=== PATIENT | male | born 1990 | race Caucasian/White ===

== ENCOUNTER 2019-01-28 22:56 | Emergency (ER) | payer BC ==
[2019-01-28 23:13] VITALS: BP 164/102; PULSE 92; O2SAT 98
[2019-01-28] MEDS ORDERED: Nizoral CREAM TOP ONE (23:39)
--- NOTE | 2019-01-28 23:40 | ERPHSYRPT ---
- History of Present Illness Time Seen by Provider: 01/28/19 23:15 Source: patient Exam Limitations: no limitations Patient Subjective Stated Complaint: pt states, "I've had this jock itch off and on for a year but it has gotten alot worse laterly". Saw BMET a couple months ago for this and she made suggestions for OTC creams, etc and he tried those with no improvement only worsening. Triage Nursing Assessment: pt has reddened area to testicular area and groin, which forms a cachil dehe ring. pt states, "it gets dry and scaly at times and is VERY itchy". Lungs clear, heart tones reg, abd soft with active bs x4 quad, nontender. Pt states, "It's painful at times but always has discomfort". Physician History: Patient has had itchy rash to groin, genitalia and upper medial thighs for the past one year. He has been scene at a clinic at work, diagnosed with jock itch , and tried clotrimazole without resolution of the rash. He has tried Gold Cervantes also with some relief, but not complete resolution of the rash. He denies any rash anywhere else. Patient states he sweats in his groin and genital area at night quite a bit. Patient has not had any oral antifungals or any biopsies of the area in the past year. Timing/Duration: other (one year) Quality: itchy Severity: moderate Location: genitalia Possible Causes: other (presumed jock itch) Modifying Factors: Improves With: other (some relief with clotrimazole and Gold Cervantes OTC, but no resolution). Worsens With: scratching Associated Symptoms: rash, No blisters, No change in skin texture, No difficulty breathing, No edema, No fever, No flushing, No headache, No hives, No jaundice, No malaise, No nasal congestion, No numbness, No pallor, No paresthesia, No petechiae, No sore throat, No swelling/mass/lumps, No tingling Allergies/Adverse Reactions: No Known Drug Allergies Allergy (Unverified 01/28/19 23:26) Hx Tetanus, Diphtheria Vaccination/Date Given: Yes Hx Influenza Vaccination/Date Given: No Hx Pneumococcal Vaccination/Date Given: No Immunizations Up to Date: Yes - Review of Systems Constitutional: No Fever, No Chills, No Fatigue Eyes: No Eye Pain, No Vision Changes Ears, Nose, & Throat: No Mouth Pain, No Mouth Swelling, No Painful Swallowing Respiratory: No Cough, No Dyspnea Cardiac: No Chest Pain, No Palpitations Abdominal/Gastrointestinal: No Abdominal Pain, No Nausea, No Vomiting, No Melena Genitourinary Symptoms: No Hematuria, No Flank Pain Musculoskeletal: No Arthralgias, No Back Pain, No Neck Pain, No Joint Swelling, No Myalgias Skin: Pruritis, Rash, No Decubiti Neurological: No Dizziness, No Headache, No Parasthesia, No Sensory Changes, No Speech Changes Psychological: No Anxiety, No Emotional Lability Endocrine: No Polydipsia, No Hair Changes Hematologic/Lymphatic: No Easy Bleeding, No Easy Bruising All Other Systems: Reviewed and Negative - Past Medical History Pertinent Past Medical History: Yes Neurological History: No Pertinent History ENT History: No Pertinent History Cardiac History: No Pertinent History Respiratory History: No Pertinent History Endocrine Medical History: No Pertinent History Musculoskeletal History: No Pertinent History GI Medical History: No Pertinent History History: No Pertinent History Psycho-Social History: Anxiety Male Reproductive Disorders: No Pertinent History - Past Surgical History Past Surgical History: No - Social History Smoking Status: Never smoker Exposure to second hand smoke: No Drug Use: none Patient Lives Alone: No - Nursing Vital Signs Nursing Vital Signs: Initial Vital Signs Temperature 98.0 F 01/28/19 23:12 Pulse Rate 92 H 01/28/19 23:12 Respiratory Rate 15 01/28/19 23:12 Blood Pressure 164/102 01/28/19 23:12 O2 Sat by Pulse Oximetry 98 01/28/19 23:12 Pain Scale Pain Intensity 8 - Physical Exam General Appearance: no apparent distress, alert Eye Exam: PERRL/EOMI, eyes nml inspection, No scleral icterus, No pale conjunctivae Ears, Nose, Throat Exam: pharynx normal, moist mucous membranes Respiratory Exam: normal breath sounds, lungs clear, airway intact, No chest tenderness, No respiratory distress, No crackles/rales, No rhonchi, No wheezing , No stridor, No pleural rub Cardiovascular Exam: regular rate/rhythm, normal heart sounds, capillary refill <2 sec Gastrointestinal/Abdomen Exam: soft, normal bowel sounds, No tenderness, No mass , No guarding, No rebound Male Genitalia Exam: normal genitalia, other (chaperoned by Zhanna Celeste RN), No hernia, No testicular tenderness, No testicular mass, No penile lesion Back Exam: normal inspection, normal range of motion, No CVA tenderness, No vertebral tenderness, No rash Extremity Exam: normal inspection, normal range of motion, pelvis stable, No calf tenderness, No huan's sign, No pedal edema Neurologic Exam: alert, oriented x 3, cooperative, global supply chain director II-XII nml as tested, normal mood/affect, sensation nml, No motor deficits Skin Exam: normal color, warm, dry, rash (erythematous patches on the suprapubic area, scrotum and medial thighs, right greater than left), No petechiae, No jaundice, No cyanosis Lymphatic Exam: No adenopathy, No inguinal node tender (L), No inguinal node tender (R) SpO2 Interpretation: normal SpO2: 98 O2 Delivery: Room Air Ordered Tests: Medication Summary Discontinued Medications Generic Name Dose Route Start Last Admin Trade Name Freq PRN Reason Stop Dose Admin Ketoconazole 1 gm 01/28/19 23:39 Nizoral Cream TOP 01/28/19 23:40 BID ONE - Progress Progress: unchanged Progress Note: 01/28/19 23:54 patient most likely has had incomplete tinea cruris treatment. He will be given ketoconazole cream with instructions how to use it. No other signs of rash anywhere on extremities, trunk, or back seen to suggest ectoparasites, lichen planus or contact dermatitis. Referral to Dermatology and primary care also to check response to therapy and to determine need for biopsy if no improvement. Counseled pt/family regarding: diagnosis, need for follow-up - Departure Departure Disposition: Home Clinical Impression: Tinea cruris, Elevated blood pressure reading without diagnosis of hypertension Condition: Good Critical Care Time: No Referrals: JOSH PLASCENCIA MD [NON-STAFF PHY W/O PRIVILEGES] - 02/02/19 (Atmospheric Physics Professor for your reference) CHING PENG [ACTIVE STAFF] - Follow Up with PCP/3 days (Primary Care Provider for your reference) Instructions: DASH Diet, Jock Itch (DC), Fungal Skin Rash (DC) Additional Instructions: We are going to treat you for an incomplete tinea cruris. If you do not notice any improvement in 5 days, follow-up with the Dermatology referral and the primary care referral for potential biopsy. If you get resolution of the rash, use the ketoconazole cream for another 3 days after it cleared to prevent recurrence. Return immediately back to the emergency department if you have any new fevers, new lesions around the area the rash, new painful urination, new painful bumps in her groin area, or any other concerning signs or symptoms that were not present at today's emergency room visit for immediate reevaluation in the emergency department. Prescriptions: Hydroxyzine HCl 25 mg [Atarax 25 mg] 25 - 50 mg PO Q6H PRN PRN #20 tablet PRN Reason: Itching Ketoconazole Cream [Nizoral CREAM] 0 gm TOP BID #2 tube
== END 2019-01-28 23:59 | disposition home or self-care (01) ==
LOC: ED 22:56
DX: B35.6 Tinea cruris (principal); R03.0 Elevated blood-pressure reading, without diagnosis of hypertension
CPT/HCPCS: 99283; A9270-GY

== ENCOUNTER 2021-07-17 10:35 | Emergency (ER) | payer SELFPAY ==
[2021-07-17 11:42] VITALS: O2SAT 97
--- NOTE | 2021-07-17 12:05 | ERPHSYRPT ---
- History of Present Illness Source: patient Exam Limitations: no limitations Patient Subjective Stated Complaint: pt states "I have been sick since . I have have fever, cough, sore throat, headache, and bodyaches." Triage Nursing Assessment: pt ambulated into the er; pt is axo x4; c/o sore throat; pt states headache; pt states 8/10 pain to head; c/o cough, fever, bodyaches; pt states vomiting on saturday; pt states diarrhea stopped yesterday; adolfo middle ear clear; tonsils red with pustules; dry hacking cough present; clear lung sounds in all lobes; hypoactive bowel sounds in all quads; no tenderness present to abd; abd soft; afebrile; tachycardic Physician History: 30 [address]/fever/mild cough/myalgias/Mild N-V-D x 5 days. Pt is hold ing down fluids wo difficulty. Great airway. Timing/Duration: gradual onset Severity: mild ENT Location: throat Prearrival Treatment: no prearrival treatment Modifying Factors: Improves With: coughing Associated Symptoms: cough, fever, chills, nasal congestion/drainage, sore throat, No ear pain (R), No ear pain (L), No change in hearing, No dizziness, No drooling, No ear drainage, No facial pain/swelling, No headache, No hearing loss, No jaw pain, No malaise, No motion sickness, No epistaxis, No nasal foreign body, No neck pain, No poor fluid intake, No poor solids intake, No ringing of ears, No swollen glands, No sinus infection, No tooth pain, No difficulty swallowing Allergies/Adverse Reactions: No Known Drug Allergies Allergy (Verified 07/17/21 10:55) Hx Tetanus, Diphtheria Vaccination/Date Given: Yes Hx Influenza Vaccination/Date Given: No Hx Pneumococcal Vaccination/Date Given: No Immunizations Up to Date: Yes Travel Risk - International Travel Have you traveled outside of the country in past 3 weeks: No - Coronavirus Screening Are you exhibiting any of the following symptoms?: Yes Symptoms: Fever, Cough: New Onset, Vomiting/Diarrhea, Headaches/Body Aches/Fatigue - Vaccine Status Have you recieved a Covid-19 vaccination: No - Review of Systems Constitutional: No Symptoms, Fever, Chills Eyes: No Symptoms Ears, Nose, & Throat: Nose Pain, Nose Congestion, Nose Discharge, Throat Pain, No Ear Pain Respiratory: No Symptoms, Cough Cardiac: No Symptoms Abdominal/Gastrointestinal: No Symptoms, Nausea, Vomiting, Diarrhea Genitourinary Symptoms: No Symptoms Musculoskeletal: No Symptoms Skin: No Symptoms Neurological: No Symptoms Psychological: No Symptoms Endocrine: No Symptoms Hematologic/Lymphatic: No Symptoms Immunological/Allergic: No Symptoms - Past Medical History Pertinent Past Medical History: Yes Neurological History: No Pertinent History ENT History: No Pertinent History Cardiac History: No Pertinent History Respiratory History: No Pertinent History Endocrine Medical History: No Pertinent History Musculoskeletal History: No Pertinent History GI Medical History: No Pertinent History History: No Pertinent History Psycho-Social History: Anxiety Male Reproductive Disorders: No Pertinent History - Past Surgical History Past Surgical History: No - Social History Smoking Status: Never smoker Exposure to second hand smoke: No Drug Use: none Patient Lives Alone: No - Nursing Vital Signs Nursing Vital Signs: Initial Vital Signs Temperature 99.4 F 07/17/21 10:56 Pulse Rate 103 H 07/17/21 10:56 Respiratory Rate 16 07/17/21 10:56 Blood Pressure 139/77 07/17/21 10:56 O2 Sat by Pulse Oximetry 99 07/17/21 10:56 Pain Scale Pain Intensity 8 Tachy/Mild hypertensive - Physical Exam General Appearance: no apparent distress Eye Exam: bilateral eye: normal inspection, PERRL, EOMI Ear Exam: bilateral ear: auricle normal, canal normal, TM normal Nasal Exam: normal inspection Throat Exam: pharynx tenderness (Mild pharyngeal erythema wo exudate or tonsillar edema/Great airway) Neck Exam: normal inspection, non-tender, supple, full range of motion, trachea midline, No JVD Cardiovascular/Respiratory Exam: normal breath sounds, tachycardia (Mild) Abdominal Exam: non-tender, soft Neurologic Exam: alert, oriented x 3, cooperative, first officer II-XII nml as tested, normal mood/affect, nml cerebellar function, nml station & gait, sensation nml, No motor deficits, No sensory deficit Skin Exam: normal color, warm, dry SpO2 Interpretation: normal SpO2: 97 O2 Delivery: Room Air - Course Nursing assessment & vital signs reviewed: Yes Ordered Tests: Medication Summary Discontinued Medications Generic Name Dose Route Start Last Admin Trade Name Freq PRN Reason Stop Dose Admin Vancomycin HCl 1 gm in 200 mls @ 125 mls/hr 07/17/21 12:15 07/17/21 12:15 Vancomycin 1 Gram/200 Ml Bag IV 07/17/21 13:50 Not Given STAT ONE Lab/Rad Data: Laboratory Results 07/17/21 07/17/21 Range/Units 11:20 11:20 Influenza Type A Ag NEGATIVE (NEGATIVE) Influenza Type B Ag NEGATIVE (NEGATIVE) RSV (PCR) NEGATIVE (Negative) SARS-CoV-2 (PCR) NEGATIVE (NEGATIVE) Group A Strep Antibody DETECTED (NEGATIVE) - Progress Counseled pt/family regarding: lab results, diagnosis, need for follow-up - Departure Departure Disposition: Home Clinical Impression: Strep pharyngitis Condition: Stable Critical Care Time: No Referrals: DOCTOR,NO FAMILY [Primary Care Provider] - Follow up/PCP as directed Instructions: Sore Throat, Adult (DC), Strep Throat (DC) Additional Instructions: Rest/Fluids/Motrin/Tylenol Penicillin three times a day for 10 days Follow up with your family MD as needed Forms: Work/School Release Form Prescriptions: Penicillin V Potassium 500 mg PO TID 10 Days #30 tablet
[2021-07-17 12:06] VITALS: BP 114/62; PULSE 97
[2021-07-17] MEDS ORDERED: VANCOMYCIN 1 GRAM/200 ML BAG 1 GM/200 ML PIGGYBACK IV ONE (12:15)
[2021-07-17 12:27] LABS: INFLUENZA A NEGATIVE (NEGATIVE); INFLUENZA B NEGATIVE (NEGATIVE); RESPIRATORY SYNCTIAL VIRUS NEGATIVE (Negative); SARS-CoV-2 Xpert Express NEGATIVE (NEGATIVE)
== END 2021-07-17 12:58 | disposition home or self-care (01) ==
LOC: ED 10:35
DX: J02.0 Streptococcal pharyngitis (principal); B95.0 Streptococcus, group A, as the cause of diseases classified elsewhere; R50.9 Fever, unspecified; R05.1 Acute cough; M79.10 Myalgia, unspecified site; R11.2 Nausea with vomiting, unspecified
CPT/HCPCS: 0241U; 87651; 99283